=== PATIENT | male | born 1940 | race Hispanic/Latino ===

== ENCOUNTER → 2020-07-31 | Outpatient (CLI) | payer OTHER | END | disposition home or self-care (01) | LOC: RAH 13:54 | PROVIDERS: ATTEND Internal Medicine Cardiovascular Disease | DX: Z13.6 Encounter for screening for cardiovascular disorders (principal) | CPT/HCPCS: 75571 ==

== ENCOUNTER → 2020-09-20 | Outpatient (CLI) | payer MEDICARE ==
[~2020-09-20] VITALS: Ht 175.3 cm; Wt 81.2 kg
[2020-09-20] MEDS: REGADENOSON 0.4 MG/5 ML PF SYG IVP SCH (12:56)
== END | disposition home or self-care (01) ==
LOC: SHCH 08:19
PROVIDERS: ATTEND Internal Medicine Cardiovascular Disease
DX: I25.10 Atherosclerotic heart disease of native coronary artery without angina pectoris (principal)
CPT/HCPCS: 78452; 93017; 96374; A9500 ×2; J2785

== ENCOUNTER → 2024-08-24 | Outpatient (CLI) | payer MEDICARE ==
[2024-08-24 16:57] LABS: CREATININE 0.7 mg/dL (0.5-1.3); POTASSIUM 4.4 mmol/L (3.5-5.1)
== END | disposition home or self-care (01) ==
LOC: LAB 14:57
PROVIDERS: ATTEND Internal Medicine Cardiovascular Disease
DX: I10 Essential (primary) hypertension (principal)
CPT/HCPCS: 36415; 80048